=== PATIENT | male | born 1960 | race Two or more races ===

== ENCOUNTER 2023-07-13 00:46 | Emergency (ER) | payer BC, OTHER ==
[~2023-07-13] VITALS: Ht 185.4 cm; Wt 104.5 kg
[2023-07-13 01:25] VITALS: PULSE 89; RESP 12; O2SAT 90
[2023-07-13] MEDS ORDERED: HYDROcodone-ACET 10/325MG TAB PO ONE (02:15)
[2023-07-13] MEDS ORDERED: ONDANSETRON ODT 4 MG TAB PO ONE (02:15)
[2023-07-13 02:47] LABS: Basophils # (auto) 0.1 10 ^3/uL (0-0.2); Eosinophils # (auto) 0.1 10 ^3/uL (0-0.8); Monocytes # (auto) 0.7 10 ^3/uL (0-1.3)
[2023-07-13 02:51] LABS: Basophils % (auto) 0.9 % (0.0-2.0); Mean Corpuscular Volume 97.9 fL (80.0-100.0); Neutrophils # (auto) 1.9 10 ^3/uL (1.6-8.6); Nucleated Red Blood Cells % 0.3 %
[2023-07-13 02:53] LABS: Eosinophils % (auto) 2.2 % (0.0-7.0); Hematocrit 46.5 % (41.0-53.0); Hemoglobin 15.8 g/dL (13.5-17.5); Lymphocytes % (auto) 51.3 % (10.0-50.0); Mean Corpuscular Hemoglobin 33.3 pg (28.0-32.0); Monocytes % (auto) 12.4 % (0.0-12.0); Neutrophils % (auto) 33.2 % (37.0-80.0); Red Blood Cells 4.75 10^6/uL (4.5-5.90); White Blood Cell 5.8 10^3/uL (4.4-10.8)
[2023-07-13 03:21] LABS: Alanine Aminotransferase 38 U/L (7-40); Albumin 4.4 g/dL (3.2-4.8); Alkaline Phosphatase 69 U/L (46-116); Anion Gap 13.3 (5-15); Aspartate Aminotransferase 33 U/L (13-40); BUN/Creatinine Ratio 5.1 (10.0-20.0); Blood Urea Nitrogen 5 mg/dL (9-23); Calcium 8.7 mg/dL (8.7-10.4); Carbon Dioxide 21.7 mmol/L (20-30); Chloride 106 mmol/L (98-107); Glucose 134 mg/dL (74-106); Potassium 3.8 mmol/L (3.5-5.1); Sodium 141 mmol/L (136-145)
[2023-07-13 03:22] LABS: Bilirubin, Total 0.3 mg/dL (0.2-1.0); Total Protein 7.4 g/dL (5.7-8.2)
[2023-07-13 03:29] LABS: Blood Alcohol 314.9 mg/dL (<10)
[2023-07-13] MEDS ORDERED: LIDOCAINE 1% HCL (LOCAL ANESTH.) INJ 20ML MDV IJ ONE (05:00)
[2023-07-13] MEDS ORDERED: HYDROcodone-ACET 5/325MG TAB PO ONE (05:30)
[2023-07-13 06:00] VITALS: BP 114/67; PULSE 87; RESP 18; TEMP 98; O2SAT 93
== END 2023-07-13 06:30 | disposition home or self-care (01) ==
LOC: EDBD 00:46 → ER 00:49
DX: S01.312A Laceration without foreign body of left ear, initial encounter (principal); S09.0XXA Injury of blood vessels of head, not elsewhere classified, initial encounter; F10.129 Alcohol abuse with intoxication, unspecified; Y08.89XA Assault by other specified means, initial encounter; Y93.89 Activity, other specified; Y92.89 Other specified places as the place of occurrence of the external cause; Y99.8 Other external cause status; Y90.0 Blood alcohol level of less than 20 mg/100 ml
CPT/HCPCS: 12013; 36415; 70450; 70486; 72125; 80053; 80320; 85025; 99285; Q0162